=== PATIENT | male | born 1965 | race Caucasian/White ===

== ENCOUNTER 2024-04-24 19:40 | Inpatient (IN) | payer MEDICAID ==
[~2024-04-24] VITALS: Ht 185.4 cm; Wt 72.1 kg
[2024-04-24 20:04] VITALS: O2SAT 92
[2024-04-24] MEDS: IPRATROPIUM BROM 0.5 MG/2.5ML INH SOL NEB ONE (20:05)
[2024-04-24] MEDS: ALBUTEROL SULF 2.5 MG/0.5ML(0.5%) NEB SOLN NEB ONE (20:05)
[2024-04-24 20:20] LABS: Hemoglobin 9.9 g/dL (13.5-17.5)
[2024-04-24 20:25] LABS: Mean Corpuscular Hemoglobin 27.6 pg (28.0-32.0); Mean Corpuscular Hgb Conc. 30.1 g/dL (32.0-36.0); Mean Corpuscular Volume 91.6 fL (80.0-100.0); Platelet Count (auto) 204 10^3/uL (140-450)
[2024-04-24 20:29] LABS: Red Cell Distribution Width 20.4 % (11.8-14.3)
[2024-04-24 20:41] LABS: Alanine Aminotransferase 21 U/L (7-40); Albumin 3.4 g/dL (3.2-4.8); Alkaline Phosphatase 168 U/L (46-116); Anion Gap 4 (5-15); Aspartate Aminotransferase 59 U/L (13-40); Blood Urea Nitrogen 24 mg/dL (9-23); Calcium 8.8 mg/dL (8.7-10.4); Carbon Dioxide 29 mmol/L (20-30); Chloride 107 mmol/L (98-107); Glucose 116 mg/dL (74-106); Potassium 4.5 mmol/L (3.5-5.1); Sodium 140 mmol/L (136-145); White Blood Cell 147.6 10^3/uL (4.4-10.8)
[2024-04-24 20:42] LABS: Basophils % (manual) 0 (0.0-2.0); Bilirubin, Total 0.3 mg/dL (0.2-1.0); Promyelocytes % 0; Total Protein 6.6 g/dL (5.7-8.2)
[2024-04-24] MEDS: FUROSEMIDE 40 MG/4 ML VIAL IV ONE (21:45)
[2024-04-24] MEDS: ONDANSETRON HCL 4 MG/2 ML VIAL IV ONE (21:45)
[2024-04-24] MEDS: MORPHINE SULFATE 4 MG/ML SYR/VIAL IV ONE (21:45)
[2024-04-24 22:33] LABS: Band Neutrophils % (manual) 2; Eosinophils % (manual) 2 (0-7); Lymphocytes % (manual) 35 (10.0-50.0); Metamyelocytes % 2; Monocytes % (manual) 3 (0-12); Myelocytes % 1
[2024-04-24 22:34] LABS: Reactive Lymphocytes 41
[2024-04-24 22:35] LABS: Anisocytosis Slight; Blast Cells 2; Platelet Estimate Adequate
[2024-04-24] MEDS: DexAMETHasone SOD PHOS 10MG/1ML VIAL INJ IM ONE (22:35)
[2024-04-24 23:13] VITALS: PULSE 111; RESP 23; O2SAT 90
[2024-04-24] MEDS: IOHEXOL 350 MG/ML 100ML IJ ONE (23:34)
[2024-04-25] VITALS (11 sets, daily range): BP systolic 103–111; BP diastolic 56–81; PULSE 65–106; RESP 14–28; TEMP 97.8–98.2; O2SAT 84–98
[2024-04-25] MEDS: AZITHROMYCIN 500MG/ 250ML 250 ML IV ONE (00:20)
[2024-04-25] MEDS: cefTRIAXone 1GM/50ML D5W 50 ML IV ONE (00:20)
[2024-04-25] MEDS ORDERED: ONDANSETRON HCL 4 MG/2 ML VIAL IV PRN (01:30)
[2024-04-25] MEDS ORDERED: DOCUSATE SOD 100 MG CAP PO PRN (01:30)
[2024-04-25] MEDS ORDERED: NITROGLYCERIN 0.4 MG SL TAB SL PRN (02:45)
[2024-04-25] MEDS ORDERED: MORPHINE SULFATE INJ 2 MG/ml SYRG IV PRN (02:45)
[2024-04-25 03:36] LABS: Hematocrit 32.7 % (41.0-53.0); Red Cell Distribution Width 20.5 % (11.8-14.3)
[2024-04-25 03:41] LABS: Hemoglobin 9.6 g/dL (13.5-17.5); Mean Corpuscular Hemoglobin 26.9 pg (28.0-32.0); Mean Corpuscular Hgb Conc. 29.5 g/dL (32.0-36.0); Platelet Count (auto) 194 10^3/uL (140-450); Red Blood Cells 3.59 10^6/uL (4.5-5.90)
[2024-04-25 03:56] LABS: Alanine Aminotransferase 19 U/L (7-40); Alkaline Phosphatase 154 U/L (46-116); Anion Gap 4 (5-15); Aspartate Aminotransferase 52 U/L (13-40); BUN/Creatinine Ratio 21.1 (10.0-20.0); Bilirubin, Total 0.3 mg/dL (0.2-1.0); Blood Urea Nitrogen 26 mg/dL (9-23); Calcium 8.6 mg/dL (8.7-10.4); Carbon Dioxide 29 mmol/L (20-30); Chloride 107 mmol/L (98-107); Glucose 118 mg/dL (74-106); Potassium 4.8 mmol/L (3.5-5.1); Sodium 140 mmol/L (136-145); Total Protein 6.1 g/dL (5.7-8.2)
[2024-04-25 04:31] LABS: Band Neutrophils % (manual) 0; Basophils % (manual) 0 (0.0-2.0); Metamyelocytes % 0; Myelocytes % 0; Promyelocytes % 0; White Blood Cell 137.1 10^3/uL (4.4-10.8)
[2024-04-25] MEDS: HYDROcodone-ACET 5/325MG TAB PO PRN (04:39)
[2024-04-25] MEDS: IPRATROPIUM BROM 0.5 MG/2.5ML INH SOL NEB PRN (05:07)
[2024-04-25] MEDS: ALBUTEROL SULF 2.5 MG/0.5ML(0.5%) NEB SOLN NEB PRN (05:07)
[2024-04-25] MEDS: SODIUM CHLOR 0.9% PF (SALINE LOCK) 10ML VIAL/SYR IV SCH (05:38)
[2024-04-25 06:22] LABS: Blast Cells 9; Eosinophils % (manual) 2 (0-7); Lymphocytes % (manual) 37 (10.0-50.0); Monocytes % (manual) 7 (0-12); Platelet Estimate Adequate; Reactive Lymphocytes 37; Smudge Cells 4 /100 WBC
[2024-04-25 06:23] LABS: Anisocytosis Slight; Hypochromia Slight
[2024-04-25 09:15] LABS: Hematocrit 34.5 % (41.0-53.0); Hemoglobin 10.2 g/dL (13.5-17.5); Mean Corpuscular Hemoglobin 27.3 pg (28.0-32.0); Mean Corpuscular Hgb Conc. 29.7 g/dL (32.0-36.0); Mean Corpuscular Volume 92.1 fL (80.0-100.0); Platelet Count (auto) 192 10^3/uL (140-450); Red Blood Cells 3.74 10^6/uL (4.5-5.90)
[2024-04-25 09:28] LABS: INR 1.05 (0.9-1.15); Partial Thromboplastin Time 25.6 SEC (24.5-34.5); Prothrombin Time 11.1 sec (9.3-11.8)
[2024-04-25 09:30] LABS: Red Cell Distribution Width 20.6 % (11.8-14.3)
[2024-04-25 09:31] LABS: White Blood Cell 139.9 10^3/uL (4.4-10.8)
[2024-04-25 09:33] LABS: Band Neutrophils % (manual) 0; Basophils % (manual) 0 (0.0-2.0); Metamyelocytes % 0; Myelocytes % 0; Promyelocytes % 0
[2024-04-25] MEDS: CARVEDILOL 3.125 MG TAB PO SCH (10:00)
[2024-04-25 10:03] LABS: Erythrocyte Sedimentation Rate 25 mm/hr (0-20)
[2024-04-25] MEDS: FUROSEMIDE 40 MG/4 ML VIAL IV SCH (10:32)
[2024-04-25] MEDS: DexAMETHasone SOD PHOS 10MG/1ML VIAL INJ IV SCH (10:32)
[2024-04-25 11:18] LABS: Blast Cells 9; Eosinophils % (manual) 2 (0-7); Lymphocytes % (manual) 71 (10.0-50.0); Monocytes % (manual) 3 (0-12); Platelet Estimate Adequate; Reactive Lymphocytes 3
[2024-04-25 11:19] LABS: Anisocytosis Slight
[2024-04-25 11:23] LABS: Urine Bacteria None Seen /hpf (None Seen)
[2024-04-25 11:30] LABS: Urine Blood Negative /uL (Negative); Urine Clarity Clear (Clear); Urine Color Light-Yellow (Yellow); Urine Protein, UAD TRACE (Negative); Urine Specific Gravity 1.031 (1.001-1.035); Urine Urobilinogen Normal (Negative); Urine WBC 1 /hpf (0 - 3); Urine pH 5.5 (5.0-9.0)
[2024-04-25 11:46] LABS: Amphetamine Screen, Urine Neg (NEGATIVE); Barbiturate Scree,Urine Neg (NEGATIVE)
[2024-04-25 11:47] LABS: Benzodiazephine Screen, Urine Neg (NEGATIVE); Cocaine Screen, Urine Neg (NEGATIVE); Opiate Scree,Urine Neg (NEGATIVE)
[2024-04-25 11:48] LABS: Cannabinoid Screen, Urine Pos (NEGATIVE); Phencyclidine Screen, Urine Neg (NEGATIVE)
[2024-04-25 17:08] LABS: Body Fluid Polymorphonuclear 5 % (0-25); Body Fluid Red Blood Cells 82875 CUMM (0-2000); Body Fluid White Blood Cells 5875 CUMM (0-200)
[2024-04-26] VITALS (10 sets, daily range): BP systolic 94–113; BP diastolic 59–73; PULSE 87–97; RESP 16–21; TEMP 97.6–98.6; O2SAT 91–99
[2024-04-26 06:12] LABS: Mean Corpuscular Hemoglobin 26.9 pg (28.0-32.0)
[2024-04-26 06:17] LABS: Hematocrit 31.8 % (41.0-53.0); Hemoglobin 9.5 g/dL (13.5-17.5); Mean Corpuscular Volume 89.9 fL (80.0-100.0); Platelet Count (auto) 188 10^3/uL (140-450); Red Blood Cells 3.54 10^6/uL (4.5-5.90)
[2024-04-26 06:26] LABS: Alanine Aminotransferase 19 U/L (7-40); Albumin 3.1 g/dL (3.2-4.8); Alkaline Phosphatase 140 U/L (46-116); Anion Gap 2 (5-15); Aspartate Aminotransferase 49 U/L (13-40); Bilirubin, Total 0.4 mg/dL (0.2-1.0); Blood Urea Nitrogen 33 mg/dL (9-23); Calcium 8.8 mg/dL (8.7-10.4); Carbon Dioxide 30 mmol/L (20-30); Chloride 105 mmol/L (98-107); Glucose 98 mg/dL (74-106); Potassium 5.4 mmol/L (3.5-5.1); Sodium 137 mmol/L (136-145)
[2024-04-26 06:33] LABS: Red Cell Distribution Width 20.3 % (11.8-14.3)
[2024-04-26 06:34] LABS: White Blood Cell 115.2 10^3/uL (4.4-10.8)
[2024-04-26 06:36] LABS: Band Neutrophils % (manual) 0; Basophils % (manual) 0 (0.0-2.0); Eosinophils % (manual) 0 (0-7); Metamyelocytes % 0; Myelocytes % 0; Promyelocytes % 0
[2024-04-26 07:11] LABS: Anisocytosis Slight; Blast Cells 8; Hypochromia Slight; Lymphocytes % (manual) 48 (10.0-50.0); Monocytes % (manual) 1 (0-12); Platelet Estimate Adequate; Reactive Lymphocytes 34
[2024-04-26] MEDS: AZITHROMYCIN 500MG/ 250ML 250 ML IV SCH (10:50)
[2024-04-26] MEDS: cefTRIAXone 1GM/50ML D5W 50 ML IV SCH (10:51)
[2024-04-26] MEDS: LACTULOSE 20Gm/30ML SOLN PO ONE (12:30)
[2024-04-26] MEDS: SODIUM ZIRCONIUM CYCL 10 GM PAK PO ONE (20:39)
[2024-04-27] VITALS (11 sets, daily range): BP systolic 96–120; BP diastolic 57–78; PULSE 77–97; RESP 16–20; TEMP 97.6–98.8; O2SAT 92–99
[2024-04-27 06:33] LABS: Hemoglobin 9.5 g/dL (13.5-17.5); Mean Corpuscular Hgb Conc. 29.9 g/dL (32.0-36.0)
[2024-04-27 06:34] LABS: Chloride 103 mmol/L (98-107); Potassium 5.4 mmol/L (3.5-5.1); Sodium 134 mmol/L (136-145)
[2024-04-27 06:35] LABS: Anion Gap 1 (5-15); Calcium 8.8 mg/dL (8.7-10.4); Carbon Dioxide 30 mmol/L (20-30); Hematocrit 31.8 % (41.0-53.0); Mean Corpuscular Hemoglobin 26.7 pg (28.0-32.0); Mean Corpuscular Volume 89.6 fL (80.0-100.0); Platelet Count (auto) 190 10^3/uL (140-450); Red Blood Cells 3.55 10^6/uL (4.5-5.90); Red Cell Distribution Width 20.4 % (11.8-14.3)
[2024-04-27 06:40] LABS: BUN/Creatinine Ratio 35.9 (10.0-20.0); Blood Urea Nitrogen 33 mg/dL (9-23); Glucose 84 mg/dL (74-106)
[2024-04-27 06:57] LABS: Band Neutrophils % (manual) 0; Basophils % (manual) 0 (0.0-2.0); Blast Cells 0; Metamyelocytes % 0; Myelocytes % 0; Promyelocytes % 0; White Blood Cell 130.8 10^3/uL (4.4-10.8)
[2024-04-27 08:29] LABS: Eosinophils % (manual) 1 (0-7); Reactive Lymphocytes 3
[2024-04-27 08:30] LABS: Lymphocytes % (manual) 85 (10.0-50.0); Monocytes % (manual) 4 (0-12)
[2024-04-27 08:32] LABS: Anisocytosis Slight; Hypochromia Moderate
[2024-04-27 08:33] LABS: Platelet Estimate Adequate; Tear Drop Cells FEW
[2024-04-28] VITALS (15 sets, daily range): BP systolic 92–120; BP diastolic 58–76; PULSE 80–95; RESP 12–22; TEMP 97.6–98.5; O2SAT 92–96
[2024-04-28 05:34] LABS: Alanine Aminotransferase 21 U/L (7-40); Albumin 3.1 g/dL (3.2-4.8); Alkaline Phosphatase 129 U/L (46-116); Anion Gap 0 (5-15); Aspartate Aminotransferase 50 U/L (13-40); BUN/Creatinine Ratio 26.6 (10.0-20.0); Bilirubin, Total 0.3 mg/dL (0.2-1.0); Blood Urea Nitrogen 29 mg/dL (9-23); Calcium 8.7 mg/dL (8.7-10.4); Carbon Dioxide 30 mmol/L (20-30); Chloride 103 mmol/L (98-107); Glucose 81 mg/dL (74-106); Hemoglobin 9.4 g/dL (13.5-17.5); Mean Corpuscular Hemoglobin 28.5 pg (28.0-32.0); Sodium 133 mmol/L (136-145)
[2024-04-28 05:35] LABS: Total Protein 5.9 g/dL (5.7-8.2)
[2024-04-28 05:41] LABS: Hematocrit 29.8 % (41.0-53.0); Mean Corpuscular Hgb Conc. 31.5 g/dL (32.0-36.0); Mean Corpuscular Volume 90.7 fL (80.0-100.0); Platelet Count (auto) 188 10^3/uL (140-450); Red Blood Cells 3.29 10^6/uL (4.5-5.90)
[2024-04-28 05:53] LABS: Red Cell Distribution Width 20.5 % (11.8-14.3)
[2024-04-28 05:55] LABS: Potassium 6.2 mmol/L (3.5-5.1); White Blood Cell 148.5 10^3/uL (4.4-10.8)
[2024-04-28 05:57] LABS: Band Neutrophils % (manual) 0; Basophils % (manual) 0 (0.0-2.0); Blast Cells 0; Metamyelocytes % 0; Myelocytes % 0; Promyelocytes % 0; Reactive Lymphocytes 0
[2024-04-28] MEDS: DEXTROSE (50%) 50ML SYRG IV ONE (08:14)
[2024-04-28] MEDS: SODIUM BICARB 8.4% 50Meq/50ml SYR Vial IV ONE (08:15)
[2024-04-28] MEDS: InsuLIN REG 1unit/0.01ml Soln (100units/ml) IV ONE (08:15)
[2024-04-28] MEDS: CALCIUM GLUC 1,000mg/50ml-NS 50 ML IV ONE (08:29)
[2024-04-28 08:36] LABS: Anisocytosis Slight; Eosinophils % (manual) 1 (0-7); Hypochromia Moderate; Lymphocytes % (manual) 91 (10.0-50.0); Monocytes % (manual) 4 (0-12); Platelet Estimate Decreased; Smudge Cells 7 /100 WBC
[2024-04-28] MEDS: MIDAZOLAM HCL 2MG/2ML 2ml VIAL (1mg/ml) ONE (09:30)
[2024-04-28] MEDS: fentaNYL CITRATE 100 MCG/2 ML VL ONE (09:30)
[2024-04-28] MEDS: LIDOCAINE 2%HCL (LOCAL ANESTH.) INJ 20ML MDV ONE (09:40)
[2024-04-28] MEDS: cefTRIAXone 1GM/50ML D5W 0 ML IV ONE (09:41)
[2024-04-28] MEDS: CLINDAMYCIN 600MG IV 50 ML IV ONE (09:47)
[2024-04-28] MEDS: HEPARIN SODIUM (PORCINE) 5000 UNITS/ML 1ML VIAL ONE ×2 (10:42→10:43)
[2024-04-28] MEDS: SODIUM ZIRCONIUM CYCL 10 GM PAK PO ONE (11:31)
[2024-04-28] MEDS ORDERED: ACETAMINOPHEN 325 MG TAB PO PRN (12:30)
[2024-04-29] VITALS (10 sets, daily range): BP systolic 85–122; BP diastolic 49–98; PULSE 81–112; RESP 14–20; TEMP 98.1–99; O2SAT 90–98
[2024-04-29 06:05] LABS: Chloride 99 mmol/L (98-107); Sodium 133 mmol/L (136-145)
[2024-04-29 06:06] LABS: Anion Gap 1 (5-15); Calcium 9.1 mg/dL (8.7-10.4); Carbon Dioxide 33 mmol/L (20-30)
[2024-04-29 06:11] LABS: BUN/Creatinine Ratio 31.5 (10.0-20.0); Blood Urea Nitrogen 34 mg/dL (9-23); Glucose 81 mg/dL (74-106)
[2024-04-29 06:20] LABS: Hematocrit 30.5 % (41.0-53.0); Hemoglobin 9.7 g/dL (13.5-17.5); Mean Corpuscular Hemoglobin 28.3 pg (28.0-32.0); Mean Corpuscular Hgb Conc. 31.6 g/dL (32.0-36.0); Mean Corpuscular Volume 89.4 fL (80.0-100.0); Platelet Count (auto) 176 10^3/uL (140-450); Red Blood Cells 3.42 10^6/uL (4.5-5.90)
[2024-04-29 06:28] LABS: Potassium 6.2 mmol/L (3.5-5.1)
[2024-04-29 06:33] LABS: Red Cell Distribution Width 20.1 % (11.8-14.3)
[2024-04-29 06:34] LABS: White Blood Cell 194.9 10^3/uL (4.4-10.8)
[2024-04-29 06:35] LABS: Band Neutrophils % (manual) 0; Basophils % (manual) 0 (0.0-2.0); Metamyelocytes % 0; Myelocytes % 0; Promyelocytes % 0
[2024-04-29 08:46] LABS: Anisocytosis Slight; Blast Cells 2; Eosinophils % (manual) 2 (0-7); Lymphocytes % (manual) 87 (10.0-50.0); Monocytes % (manual) 3 (0-12); Platelet Estimate Adequate; Reactive Lymphocytes 2
[2024-04-29] MEDS: ALLOPURINOL 100 MG TAB PO SCH (09:32)
[2024-04-29] MEDS: DEXTROSE (50%) 50ML SYRG IV ONE (10:19)
[2024-04-29] MEDS: CALCIUM GLUC 1,000mg/50ml-NS 50 ML IV ONE (10:19)
[2024-04-29] MEDS: InsuLIN REG 1unit/0.01ml Soln (100units/ml) IV ONE (10:22)
[2024-04-29] MEDS: FUROSEMIDE 40 MG/4 ML VIAL IV SCH (10:29)
[2024-04-29] MEDS: SODIUM ZIRCONIUM CYCL 10 GM PAK PO ONE (10:29)
[2024-04-29] MEDS: ACETAMINOPHEN 325 MG TAB PO ONE (10:45)
[2024-04-29] MEDS: diphenhdrAMINE HCL 25 MG CAP PO ONE ×2 (10:46→17:15)
[2024-04-29] MEDS ORDERED: SODIUM CHL 0.9% IV SCH ×2 (11:00)
[2024-04-29] MEDS ORDERED: BENDAMUSTINE HCL IV SCH ×2 (11:00)
[2024-04-29 12:06] LABS: Protein, Body Fluid 3.7 g/dL (.)
[2024-04-29] MEDS: SODIUM CHL 0.9% IV SCH (14:03)
[2024-04-29] MEDS: BENDAMUSTINE HCL IV SCH (14:03)
[2024-04-29] MEDS: ONDANSETRON HCL 4 MG/2 ML VIAL IV PRN (14:10)
[2024-04-29] MEDS: SODIUM CHL 0.9% IV ONE (15:16)
[2024-04-29] MEDS: RITUXIMAB IV ONE (15:16)
[2024-04-29] MEDS: SODIUM ZIRCONIUM CYCL 10 GM PAK PO SCH (15:54)
[2024-04-29] MEDS: ACETAMINOPHEN 325 MG TAB PO PRN (17:14)
[2024-04-29] MEDS: SODIUM CHLORIDE 0.9% 500 ML IV ONE (23:38)
[2024-04-30] VITALS (11 sets, daily range): BP systolic 93–110; BP diastolic 50–64; PULSE 85–101; RESP 16–20; TEMP 97.6–98.5; O2SAT 94–98
[2024-04-30 06:31] LABS: Hematocrit 30.1 % (41.0-53.0); Red Cell Distribution Width 19.9 % (11.8-14.3)
[2024-04-30 06:35] LABS: Hemoglobin 9.6 g/dL (13.5-17.5); Mean Corpuscular Hgb Conc. 31.8 g/dL (32.0-36.0); Mean Corpuscular Volume 88.1 fL (80.0-100.0); Platelet Count (auto) 91 10^3/uL (140-450); Red Blood Cells 3.42 10^6/uL (4.5-5.90)
[2024-04-30 06:38] LABS: Alanine Aminotransferase 150 U/L (7-40); Alkaline Phosphatase 172 U/L (46-116); Anion Gap 4 (5-15); Aspartate Aminotransferase 342 U/L (13-40); BUN/Creatinine Ratio 31.6 (10.0-20.0); Bilirubin, Total 0.3 mg/dL (0.2-1.0); Calcium 8.6 mg/dL (8.7-10.4); Carbon Dioxide 28 mmol/L (20-30); Chloride 99 mmol/L (98-107); Glucose 87 mg/dL (74-106); Magnesium 1.9 mg/dL (1.6-2.6); Potassium 5.1 mmol/L (3.5-5.1); Sodium 131 mmol/L (136-145); Total Protein 5.6 g/dL (5.7-8.2)
[2024-04-30 06:43] LABS: White Blood Cell 44.1 10^3/uL (4.4-10.8)
[2024-04-30 06:44] LABS: Band Neutrophils % (manual) 0; Basophils % (manual) 0 (0.0-2.0); Eosinophils % (manual) 0 (0-7); Metamyelocytes % 0; Myelocytes % 0; Promyelocytes % 0
[2024-04-30 06:49] LABS: Blood Urea Nitrogen 61 mg/dL (9-23)
[2024-04-30 08:38] LABS: Blast Cells 2; Lymphocytes % (manual) 70 (10.0-50.0); Monocytes % (manual) 3 (0-12); Reactive Lymphocytes 2
[2024-04-30 08:39] LABS: Platelet Estimate Decreased
[2024-04-30] MEDS: SODIUM CHLORIDE 0.9% 1,000 ML IV SCH (09:00)
[2024-04-30] MEDS ORDERED: DexAMETHasone SOD PHOS 4 MG/1ML SDV INJ IV PRN (09:15)
[2024-04-30] MEDS: diphenhdrAMINE HCL 25 MG CAP PO ONE (13:08)
[2024-04-30] MEDS: ONDANSETRON HCL 4 MG/2 ML VIAL IV PRN (13:09)
[2024-04-30] MEDS: SODIUM CHL 0.9% IV SCH (13:22)
[2024-04-30] MEDS: BENDAMUSTINE HCL IV SCH (13:22)
[2024-05-01 01:00] VITALS: BP 93/57; PULSE 80; RESP 18; TEMP 98.9; O2SAT 91
[2024-05-01 01:44] VITALS: BP 94/58; PULSE 94; RESP 18; O2SAT 97
[2024-05-01 05:00] VITALS: BP 98/43; PULSE 88; RESP 88; TEMP 98.3; O2SAT 95
[2024-05-01 05:50] LABS: Hematocrit 28.9 % (41.0-53.0); Hemoglobin 9.4 g/dL (13.5-17.5); Mean Corpuscular Hemoglobin 28.4 pg (28.0-32.0); Mean Corpuscular Hgb Conc. 32.6 g/dL (32.0-36.0); Platelet Count (auto) 97 10^3/uL (140-450); Red Blood Cells 3.32 10^6/uL (4.5-5.90); White Blood Cell 29.9 10^3/uL (4.4-10.8)
[2024-05-01 06:13] LABS: Basophils % (manual) 0 (0.0-2.0); Metamyelocytes % 0; Myelocytes % 0; Promyelocytes % 0
[2024-05-01 06:15] LABS: Alanine Aminotransferase 215 U/L (7-40); Albumin 2.9 g/dL (3.2-4.8); Alkaline Phosphatase 128 U/L (46-116); Anion Gap 2 (5-15); Aspartate Aminotransferase 361 U/L (13-40); BUN/Creatinine Ratio 36.4 (10.0-20.0); Bilirubin, Total 0.2 mg/dL (0.2-1.0); Blood Urea Nitrogen 55 mg/dL (9-23); Calcium 8.8 mg/dL (8.7-10.4); Carbon Dioxide 27 mmol/L (20-30); Chloride 103 mmol/L (98-107); Glucose 104 mg/dL (74-106); Sodium 132 mmol/L (136-145); Total Protein 5.6 g/dL (5.7-8.2)
[2024-05-01 07:54] VITALS: BP 100/61; PULSE 91; RESP 17; TEMP 97.9; O2SAT 98
[2024-05-01 07:58] LABS: Band Neutrophils % (manual) 3; Blast Cells 1; Eosinophils % (manual) 1 (0-7); Lymphocytes % (manual) 68 (10.0-50.0); Monocytes % (manual) 6 (0-12); Platelet Estimate Decreased; Reactive Lymphocytes 3
[2024-05-01 08:00] VITALS: PULSE 93
[2024-05-01 11:40] VITALS: BP 102/58; PULSE 89; RESP 16; TEMP 97.4; O2SAT 89
== END 2024-05-01 15:55 | disposition home or self-care (01) | DRG 691 ==
LOC: ER 19:40 → EDBD 19:40 → EDSEX 19:40 → TELE-EAST 04-25 02:45 → TELE 04-25 02:45 → TELE-EAST 04-25 04:11
PROVIDERS: ADMIT Internal Medicine; ATTEND Emergency Medicine
PROC: 0W9B3ZZ Drainage of Left Pleural Cavity, Percutaneous Approach (ICD-10-PCS; principal; 2024-04-25)
PROC: 0JH63XZ Insertion of Tunneled Vascular Access Device into Chest Subcutaneous Tissue and Fascia, Percutaneous Approach (ICD-10-PCS; 2024-04-28)
PROC: 02HV33Z Insertion of Infusion Device into Superior Vena Cava, Percutaneous Approach (ICD-10-PCS; 2024-04-28)
PROC: B518ZZA Fluoroscopy of Superior Vena Cava, Guidance (ICD-10-PCS; 2024-04-28)
PROC: B548ZZA Ultrasonography of Superior Vena Cava, Guidance (ICD-10-PCS; 2024-04-28)
DX: C82.18 Follicular lymphoma grade II, lymph nodes of multiple sites (principal); J96.01 Acute respiratory failure with hypoxia; N17.0 Acute kidney failure with tubular necrosis; J15.69 Pneumonia due to other Gram-negative bacteria; R18.8 Other ascites; J15.9 Unspecified bacterial pneumonia; J90 Pleural effusion, not elsewhere classified; J44.0 Chronic obstructive pulmonary disease with (acute) lower respiratory infection; R56.9 Unspecified convulsions; D72.820 Lymphocytosis (symptomatic); E11.9 Type 2 diabetes mellitus without complications; C81.90 Hodgkin lymphoma, unspecified, unspecified site; H40.9 Unspecified glaucoma; D72.829 Elevated white blood cell count, unspecified; F17.210 Nicotine dependence, cigarettes, uncomplicated; R79.89 Other specified abnormal findings of blood chemistry; E87.5 Hyperkalemia; K59.00 Constipation, unspecified; Z88.0 Allergy status to penicillin; Z85.6 Personal history of leukemia; C82.28 Follicular lymphoma grade III, unspecified, lymph nodes of multiple sites
CPT/HCPCS: 32555; 36415; 36558; 71045; 71275; 76604; 76705; 76942; 77001; 80048; 80053; 80307; 81001; 83615; 83735; 83880; 83986; 84132; 84484; 84550; 85007; 85027; 85379; 85610; 85652; 85730; 86141; 86850; 86900; 86901; 87070; 87205; 89051; 93005; 93306; 94640; 99152; C1894; G0378; J1100; J1642; J1815; J2250; J2405; J3490; J9034

== ENCOUNTER 2024-05-24 08:11 | Inpatient (IN) | payer MEDICAID, OTHER ==
[~2024-05-24] VITALS: Ht 185.4 cm; Wt 70.3 kg
[~2024-05-24 08:11] MED LIST: ONDA-180 PO; PROC10TA6 PO
[2024-05-24 08:51] LABS: Basophils # (auto) 0.1 10 ^3/uL (0-0.2); Eosinophils # (auto) 0 10 ^3/uL (0-0.8); Eosinophils % (auto) 0.4 % (0.0-7.0); Monocytes # (auto) 0.4 10 ^3/uL (0-1.3); Nucleated Red Blood Cells % 0.1 %; Platelet Count (auto) 49 10^3/uL (140-450); White Blood Cell 4.2 10^3/uL (4.4-10.8)
[2024-05-24 08:53] LABS: Basophils % (auto) 1.3 % (0.0-2.0); Hematocrit 26.7 % (41.0-53.0); Lymphocytes # (auto) 0.8 10 ^3/uL (0.4-5.4); Lymphocytes % (auto) 19.1 % (10.0-50.0); Mean Corpuscular Hemoglobin 29.3 pg (28.0-32.0); Mean Corpuscular Hgb Conc. 33.6 g/dL (32.0-36.0); Mean Corpuscular Volume 87.3 fL (80.0-100.0); Monocytes % (auto) 8.6 % (0.0-12.0); Neutrophils % (auto) 70.6 % (37.0-80.0); Red Blood Cells 3.06 10^6/uL (4.5-5.90); Red Cell Distribution Width 23.2 % (11.8-14.3)
[2024-05-24 09:00] LABS: Alanine Aminotransferase 20 U/L (7-40); Albumin 2.6 g/dL (3.2-4.8); Alkaline Phosphatase 62 U/L (46-116); Anion Gap 3 (5-15); Aspartate Aminotransferase 22 U/L (13-40); Blood Urea Nitrogen 22 mg/dL (9-23); Calcium 7.2 mg/dL (8.7-10.4); Carbon Dioxide 26 mmol/L (20-30); Chloride 102 mmol/L (98-107); Glucose 111 mg/dL (74-106); Magnesium 1.9 mg/dL (1.6-2.6); Potassium 4.1 mmol/L (3.5-5.1); Sodium 131 mmol/L (136-145)
[2024-05-24 09:01] LABS: Bilirubin, Total 0.4 mg/dL (0.2-1.0); Total Protein 4.3 g/dL (5.7-8.2)
[2024-05-24 09:17] LABS: INR 1.17 (0.9-1.15); Partial Thromboplastin Time 27.6 SEC (24.5-34.5); Prothrombin Time 12.3 sec (9.3-11.8)
[2024-05-24 09:34] LABS: Anisocytosis Slight; Platelet Estimate Decreased
[2024-05-24] MEDS: HYDROcodone-ACET 10/325MG TAB PO ONE (09:34)
[2024-05-24 09:35] LABS: Ovalocytes FEW
[2024-05-24 10:35] VITALS: O2SAT 91
[2024-05-24] MEDS: FUROSEMIDE 20 MG/2 ML VIAL IV ONE (11:48)
[2024-05-24] MEDS ORDERED: ACYC1TAB2 PO ×2 (13:32→19:13)
[2024-05-24] MEDS ORDERED: ALBUTEROL SULF 2.5 MG/0.5ML(0.5%) NEB SOLN NEB PRN (14:00)
[2024-05-24] MEDS: HYDROcodone-ACET 5/325MG TAB PO PRN (15:08)
[2024-05-24 15:14] VITALS: BP 105/77; PULSE 99; RESP 16; TEMP 97.9; O2SAT 93
[2024-05-24 15:28] LABS: INR 1.13 (0.9-1.15); Prothrombin Time 11.9 sec (9.3-11.8)
[2024-05-24 18:02] VITALS: BP 100/64; PULSE 100; RESP 22; TEMP 98; O2SAT 92
[2024-05-24 18:30] VITALS: PULSE 100; RESP 22; O2SAT 92
[2024-05-24] MEDS ORDERED: ACET-6 PO (19:11)
[2024-05-24] MEDS ORDERED: ZOFR4T PO (19:11)
[2024-05-24] MEDS ORDERED: ALBU108A5 IN (19:11)
[2024-05-24 21:00] VITALS: BP 113/78; PULSE 91; RESP 18; TEMP 97.9; O2SAT 99
[2024-05-24] MEDS: ACYCLOVIR 400 MG TAB PO SCH (21:11)
[2024-05-24 22:21] VITALS: O2SAT 92
[2024-05-25] VITALS (9 sets, daily range): BP systolic 91–115; BP diastolic 53–83; PULSE 95–106; RESP 17–19; TEMP 97.5–99.2; O2SAT 93–100
[2024-05-25 06:06] LABS: Basophils # (auto) 0 10 ^3/uL (0-0.2); Eosinophils # (auto) 0 10 ^3/uL (0-0.8); Eosinophils % (auto) 0.9 % (0.0-7.0); Monocytes # (auto) 0.5 10 ^3/uL (0-1.3); Nucleated Red Blood Cells % 0.1 %
[2024-05-25 06:08] LABS: Basophils % (auto) 0.4 % (0.0-2.0); Hematocrit 27.9 % (41.0-53.0); Hemoglobin 9.2 g/dL (13.5-17.5); Lymphocytes % (auto) 21.1 % (10.0-50.0); Mean Corpuscular Hemoglobin 28.8 pg (28.0-32.0); Mean Corpuscular Hgb Conc. 32.9 g/dL (32.0-36.0); Mean Corpuscular Volume 87.5 fL (80.0-100.0); Monocytes % (auto) 9.3 % (0.0-12.0); Neutrophils # (auto) 3.3 10 ^3/uL (1.6-8.6); Neutrophils % (auto) 68.3 % (37.0-80.0); Platelet Count (auto) 48 10^3/uL (140-450); Red Blood Cells 3.18 10^6/uL (4.5-5.90); White Blood Cell 4.8 10^3/uL (4.4-10.8)
[2024-05-25 06:18] LABS: Alanine Aminotransferase 22 U/L (7-40); Albumin 2.6 g/dL (3.2-4.8); Alkaline Phosphatase 61 U/L (46-116); Anion Gap 3 (5-15); Aspartate Aminotransferase 20 U/L (13-40); BUN/Creatinine Ratio 25.2 (10.0-20.0); Bilirubin, Total 0.5 mg/dL (0.2-1.0); Blood Urea Nitrogen 26 mg/dL (9-23); Calcium 7.6 mg/dL (8.7-10.4); Carbon Dioxide 27 mmol/L (20-30); Chloride 102 mmol/L (98-107); Glucose 105 mg/dL (74-106); Potassium 4.5 mmol/L (3.5-5.1); Sodium 132 mmol/L (136-145); Total Protein 4.2 g/dL (5.7-8.2)
[2024-05-25 06:25] LABS: Red Cell Distribution Width 22.5 % (11.8-14.3)
[2024-05-25] MEDS ORDERED: ENOXAPARIN SOD 40 MG/0.4 ML SYRINGE SC SCH (10:00)
[2024-05-25] MEDS: FUROSEMIDE 20 MG/2 ML VIAL IV SCH (10:56)
[2024-05-25 16:51] LABS: Body Fluid Polymorphonuclear 20 % (0-25); Body Fluid Red Blood Cells 169000 CUMM (0-2000); Body Fluid White Blood Cells 350 CUMM (0-200)
[2024-05-26] VITALS (8 sets, daily range): BP systolic 92–162; BP diastolic 52–91; PULSE 54–106; RESP 16–18; TEMP 98–99; O2SAT 92–99
[2024-05-26] MEDS: ALBUMIN 25% 100 ML IV SCH (12:30)
[2024-05-26] MEDS: ALBUMIN 25% 100 ML IV ONE (12:42)
[2024-05-26] MEDS: MIDODRINE HCL 10 MG TAB PO SCH (12:45)
[2024-05-26 14:51] LABS: Body Fluid Red Blood Cells 256486 CUMM (0-2000); Body Fluid White Blood Cells 648 CUMM (0-200)
[2024-05-26 14:56] LABS: Body Fluid Polymorphonuclear 13 % (0-25)
[2024-05-27 01:00] VITALS: BP 95/50; PULSE 111; RESP 19; TEMP 102.7; O2SAT 91
[2024-05-27] MEDS: ACETAMINOPHEN 325 MG TAB PO PRN (01:08)
[2024-05-27 05:00] VITALS: BP 98/59; PULSE 95; RESP 19; TEMP 98.9; O2SAT 99
[2024-05-27 07:12] LABS: Basophils # (auto) 0 10 ^3/uL (0-0.2); Eosinophils # (auto) 0 10 ^3/uL (0-0.8); Eosinophils % (auto) 1.2 % (0.0-7.0); Lymphocytes # (auto) 1.3 10 ^3/uL (0.4-5.4); Mean Corpuscular Hemoglobin 29.2 pg (28.0-32.0); Neutrophils # (auto) 1.8 10 ^3/uL (1.6-8.6)
[2024-05-27 07:20] LABS: Basophils % (auto) 0.6 % (0.0-2.0); Hematocrit 24.1 % (41.0-53.0); Lymphocytes % (auto) 38.1 % (10.0-50.0); Mean Corpuscular Hgb Conc. 33.3 g/dL (32.0-36.0); Mean Corpuscular Volume 87.7 fL (80.0-100.0); Monocytes # (auto) 0.2 10 ^3/uL (0-1.3); Monocytes % (auto) 7.1 % (0.0-12.0); Platelet Count (auto) 50 10^3/uL (140-450); Red Blood Cells 2.75 10^6/uL (4.5-5.90); White Blood Cell 3.5 10^3/uL (4.4-10.8)
[2024-05-27 07:30] LABS: Red Cell Distribution Width 23.4 % (11.8-14.3)
[2024-05-27 07:37] LABS: Alanine Aminotransferase 16 U/L (7-40); Albumin 2.7 g/dL (3.2-4.8); Alkaline Phosphatase 53 U/L (46-116); Anion Gap 2 (5-15); Aspartate Aminotransferase 18 U/L (13-40); BUN/Creatinine Ratio 23.7 (10.0-20.0); Bilirubin, Total 0.5 mg/dL (0.2-1.0); Blood Urea Nitrogen 23 mg/dL (9-23); Calcium 7.7 mg/dL (8.7-10.4); Carbon Dioxide 28 mmol/L (20-30); Chloride 101 mmol/L (98-107); Glucose 104 mg/dL (74-106); Potassium 4.4 mmol/L (3.5-5.1); Sodium 131 mmol/L (136-145)
[2024-05-27 07:38] LABS: Total Protein 4.1 g/dL (5.7-8.2)
[2024-05-27 08:32] VITALS: O2SAT 94
[2024-05-27 08:37] LABS: Anisocytosis Slight; Platelet Estimate Decreased
[2024-05-27 09:00] VITALS: BP 98/55; PULSE 93; RESP 18; TEMP 99; O2SAT 92
[2024-05-27 13:07] LABS: Protein, Body Fluid 2.3 g/dL (.)
[2024-05-27 13:07] LABS: Protein, Body Fluid 3.2 g/dL (.)
[2024-05-27] MEDS ORDERED: MID10T PO (14:45)
[2024-05-27 17:00] VITALS: BP 91/62; PULSE 101; RESP 17; TEMP 99.3; O2SAT 92
[2024-05-27 17:31] VITALS: BP 91/62; PULSE 101; RESP 17; TEMP 99.3; O2SAT 92
== END 2024-05-27 19:44 | disposition home or self-care (01) ==
LOC: ER 08:11 → EDBD 08:11 → MERGE 13:32 → OVERFLOW 13:32 → WEST WING 17:29
PROVIDERS: ADMIT Nurse Practitioner Family; ATTEND Hospitalist
PROC: 0W9B3ZZ Drainage of Left Pleural Cavity, Percutaneous Approach (ICD-10-PCS; principal; 2024-05-25)
PROC: 0W9G3ZZ Drainage of Peritoneal Cavity, Percutaneous Approach (ICD-10-PCS; 2024-05-26)
DX: K74.60 Unspecified cirrhosis of liver (principal); J96.01 Acute respiratory failure with hypoxia; D69.6 Thrombocytopenia, unspecified; E44.0 Moderate protein-calorie malnutrition; J90 Pleural effusion, not elsewhere classified; E87.1 Hypo-osmolality and hyponatremia; I50.9 Heart failure, unspecified; R18.8 Other ascites; J98.11 Atelectasis; F17.210 Nicotine dependence, cigarettes, uncomplicated; H54.7 Unspecified visual loss; J44.9 Chronic obstructive pulmonary disease, unspecified; D64.9 Anemia, unspecified; Z88.0 Allergy status to penicillin; Z92.21 Personal history of antineoplastic chemotherapy; Z68.20 Body mass index [BMI] 20.0-20.9, adult
CPT/HCPCS: 32555; 36415; 49083; 71045; 74176; 76705; 76942; 80053; 83735; 83880; 83986; 84484; 85025; 85610; 85730; 87205; 89051; 96374; 97110; 97116; 97163; 99291; G0378; P9047

== ENCOUNTER 2024-06-10 19:57 | Inpatient (IN) | payer MEDICAID ==
[~2024-06-10] VITALS: Ht 185.4 cm; Wt 64.8 kg
[~2024-06-10 19:57] MED LIST changes: +ACET-6 PO; +ACYC1TAB2 PO; +ALBU108A5 IN; +MID10T PO
[2024-06-10 21:11] LABS: Basophils # (auto) 0.1 10 ^3/uL (0-0.2); Basophils % (auto) 0.9 % (0.0-2.0); Eosinophils # (auto) 0.1 10 ^3/uL (0-0.8); Eosinophils % (auto) 1.4 % (0.0-7.0); Hematocrit 29.6 % (41.0-53.0); Hemoglobin 9.2 g/dL (13.5-17.5); Lymphocytes # (auto) 2.5 10 ^3/uL (0.4-5.4); Mean Corpuscular Hemoglobin 27.5 pg (28.0-32.0); Mean Corpuscular Hgb Conc. 31.1 g/dL (32.0-36.0); Mean Corpuscular Volume 88.4 fL (80.0-100.0); Monocytes % (auto) 17.1 % (0.0-12.0); Neutrophils # (auto) 2.4 10 ^3/uL (1.6-8.6); Neutrophils % (auto) 39.6 % (37.0-80.0); Nucleated Red Blood Cells % 0.1 %; Platelet Count (auto) 287 10^3/uL (140-450); Red Blood Cells 3.35 10^6/uL (4.5-5.90); White Blood Cell 6.1 10^3/uL (4.4-10.8)
[2024-06-10 21:18] LABS: Alanine Aminotransferase 25 U/L (7-40); Alkaline Phosphatase 89 U/L (46-116); Anion Gap 4 (5-15); Aspartate Aminotransferase 22 U/L (13-40); Blood Urea Nitrogen 21 mg/dL (9-23); Calcium 8.7 mg/dL (8.7-10.4); Carbon Dioxide 30 mmol/L (20-31); Chloride 107 mmol/L (98-107); Glucose 92 mg/dL (74-106); Potassium 4.6 mmol/L (3.5-5.1); Sodium 141 mmol/L (136-145)
[2024-06-10 21:19] LABS: Bilirubin, Total 0.2 mg/dL (0.2-1.0); Total Protein 4.8 g/dL (5.7-8.2)
[2024-06-10] MEDS: HYDROcodone-ACET 5/325MG TAB PO ONE (21:36)
[2024-06-10 23:25] LABS: Urine Bacteria FEW /hpf (None Seen); Urine Blood Negative /uL (Negative); Urine Clarity Clear (Clear); Urine Color Light-Yellow (Yellow); Urine Protein, UAD 1+ (Negative); Urine Specific Gravity 1.025 (1.001-1.035); Urine Sperm PRESENT /hpf (None Seen); Urine Urobilinogen Normal (Negative); Urine WBC 1 /hpf (0 - 3); Urine pH 7.5 (5.0-9.0)
[2024-06-11] VITALS (9 sets, daily range): BP systolic 95–125; BP diastolic 60–75; PULSE 87–106; RESP 15–18; TEMP 98.1–99.3; O2SAT 92–98
[2024-06-11] MEDS: FUROSEMIDE 40 MG/4 ML VIAL IV ONE (00:08)
[2024-06-11] MEDS: HYDROcodone-ACET 5/325MG TAB PO ONE (02:18)
[2024-06-11] MEDS ORDERED: ACETAMINOPHEN 325 MG TAB PO PRN (02:45)
[2024-06-11] MEDS ORDERED: ONDANSETRON HCL 4 MG/2 ML VIAL IV PRN (02:45)
[2024-06-11] MEDS ORDERED: ALBUTEROL SULF 2.5 MG/0.5ML(0.5%) NEB SOLN NEB PRN (02:45)
[2024-06-11] MEDS ORDERED: TEMAZEPAM 15 MG CAP PO PRN (02:45)
[2024-06-11] MEDS: ALBUMIN 25% 50 ML IV SCH (03:15)
[2024-06-11] MEDS: FUROSEMIDE 20 MG/2 ML VIAL IV SCH ×2 (03:25→19:00)
[2024-06-11 04:39] LABS: Chloride 105 mmol/L (98-107); Potassium 3.9 mmol/L (3.5-5.1); Sodium 138 mmol/L (136-145)
[2024-06-11 04:40] LABS: Anion Gap 6 (5-15); Calcium 8.5 mg/dL (8.7-10.4); Carbon Dioxide 27 mmol/L (20-31)
[2024-06-11 04:45] LABS: BUN/Creatinine Ratio 18.2 (10.0-20.0); Blood Urea Nitrogen 16 mg/dL (9-23); Glucose 111 mg/dL (74-106)
[2024-06-11] MEDS: MIDODRINE HCL 10 MG TAB PO SCH (05:42)
[2024-06-11] MEDS: HYDROcodone-ACET 5/325MG TAB PO PRN (05:47)
[2024-06-11] MEDS ORDERED: FUROSEMIDE 20 MG/2 ML VIAL IV SCH (06:00)
[2024-06-11 08:24] LABS: INR 1.03 (0.9-1.15); Partial Thromboplastin Time 29.9 SEC (24.5-34.5); Prothrombin Time 10.9 sec (9.3-11.8)
[2024-06-11] MEDS: ENOXAPARIN SOD 40 MG/0.4 ML SYRINGE SC SCH (09:09)
[2024-06-11] MEDS: ALBUMIN 25% 100 ML IV ONE (10:51)
[2024-06-11] MEDS ORDERED: FURO1TAB31 PO (17:09)
[2024-06-11] MEDS ORDERED: HYDR-4902 PO (17:09)
[2024-06-11] MEDS: SPIRONOLACTONE 25 MG TAB PO SCH (17:49)
[2024-06-11 19:26] LABS: Body Fluid Polymorphonuclear 20 % (0-25); Body Fluid Red Blood Cells 84924 CUMM (0-2000); Body Fluid White Blood Cells 2558 CUMM (0-200)
[2024-06-12] VITALS (8 sets, daily range): BP systolic 100–114; BP diastolic 64–72; PULSE 82–91; RESP 18–20; TEMP 97.6–98.6; O2SAT 94–98
[2024-06-12] MEDS: HYDROcodone-ACET 5/325MG TAB PO PRN (05:42)
[2024-06-12 07:27] LABS: Anion Gap 3 (5-15); Calcium 9.3 mg/dL (8.7-10.4); Carbon Dioxide 31 mmol/L (20-31); Chloride 105 mmol/L (98-107); Potassium 4.6 mmol/L (3.5-5.1); Sodium 139 mmol/L (136-145)
[2024-06-12 07:33] LABS: BUN/Creatinine Ratio 20.5 (10.0-20.0); Blood Urea Nitrogen 18 mg/dL (9-23); Glucose 93 mg/dL (74-106)
[2024-06-12 07:34] LABS: Magnesium 2.1 mg/dL (1.6-2.6)
[2024-06-12 13:06] LABS: Protein, Body Fluid 2.7 g/dL (.)
[2024-06-13] VITALS (7 sets, daily range): BP systolic 100–118; BP diastolic 60–69; PULSE 86–99; RESP 17–19; TEMP 97.9–99.8; O2SAT 91–98
[2024-06-13] MEDS: HYDROcodone-ACET 5/325MG TAB PO PRN (00:20)
[2024-06-13] MEDS: AZITHROMYCIN 250 MG TAB PO SCH (11:57)
[2024-06-13] MEDS: cefTRIAXone 1GM/50ML D5W 50 ML IV SCH (11:58)
[2024-06-14] VITALS (8 sets, daily range): BP systolic 100–125; BP diastolic 67–72; PULSE 72–93; RESP 16–20; TEMP 97.5–99.1; O2SAT 92–94
[2024-06-14 06:56] LABS: Anion Gap 5 (5-15); Carbon Dioxide 29 mmol/L (20-31); Chloride 102 mmol/L (98-107); Potassium 4.3 mmol/L (3.5-5.1); Sodium 136 mmol/L (136-145)
[2024-06-14 07:02] LABS: BUN/Creatinine Ratio 16.9 (10.0-20.0); Blood Urea Nitrogen 15 mg/dL (9-23); Glucose 87 mg/dL (74-106); Magnesium 2.2 mg/dL (1.6-2.6)
[2024-06-14] MEDS: FUROSEMIDE 40 MG/4 ML VIAL IV SCH (08:48)
[2024-06-15] VITALS (8 sets, daily range): BP systolic 95–135; BP diastolic 63–79; PULSE 65–94; RESP 17–18; TEMP 97.4–98.4; O2SAT 94–99
[2024-06-16 01:00] VITALS: BP 92/51; PULSE 83; RESP 16; TEMP 98.6; O2SAT 96
[2024-06-16 05:00] VITALS: BP 102/66; PULSE 81; RESP 16; TEMP 98.4; O2SAT 96
[2024-06-16 08:00] VITALS: PULSE 88; RESP 17; O2SAT 97
[2024-06-16 09:00] VITALS: BP 134/81; PULSE 88; RESP 17; TEMP 98.2; O2SAT 97
[2024-06-16 13:00] VITALS: BP 110/71; PULSE 87; RESP 16; TEMP 98.3; O2SAT 96
== END 2024-06-16 15:26 | disposition home or self-care (01) | DRG 691 ==
LOC: ER 19:57 → EDBD 19:57 → OVERFLOW 06-11 02:43 → WEST WING 06-11 14:28
PROVIDERS: ADMIT Nurse Practitioner; ATTEND Nurse Practitioner Acute Care
PROC: 0W9B3ZZ Drainage of Left Pleural Cavity, Percutaneous Approach (ICD-10-PCS; 2024-06-11)
PROC: 0W9B3ZX Drainage of Left Pleural Cavity, Percutaneous Approach, Diagnostic (ICD-10-PCS; principal; 2024-06-12)
PROC: 0W9B3ZZ Drainage of Left Pleural Cavity, Percutaneous Approach (ICD-10-PCS; 2024-06-16)
PROC: BB4BZZZ Ultrasonography of Pleura (ICD-10-PCS; 2024-06-16)
DX: C81.78 Other Hodgkin lymphoma, lymph nodes of multiple sites (principal); J96.01 Acute respiratory failure with hypoxia; I50.33 Acute on chronic diastolic (congestive) heart failure; E43 Unspecified severe protein-calorie malnutrition; R18.8 Other ascites; J91.0 Malignant pleural effusion; C82.28 Follicular lymphoma grade III, unspecified, lymph nodes of multiple sites; C85.18 Unspecified B-cell lymphoma, lymph nodes of multiple sites; E11.9 Type 2 diabetes mellitus without complications; E88.09 Other disorders of plasma-protein metabolism, not elsewhere classified; K74.60 Unspecified cirrhosis of liver; J44.9 Chronic obstructive pulmonary disease, unspecified; G40.909 Epilepsy, unspecified, not intractable, without status epilepticus; G89.4 Chronic pain syndrome; J98.11 Atelectasis; F17.210 Nicotine dependence, cigarettes, uncomplicated; Z59.00 Homelessness unspecified; Z88.0 Allergy status to penicillin; Z79.899 Other long term (current) drug therapy; Z68.21 Body mass index [BMI] 21.0-21.9, adult
CPT/HCPCS: 32555; 36415; 71045; 73502; 76604; 76705; 76942; 80048; 80053; 81001; 83605; 83735; 83880; 83986; 84484; 85025; 85610; 85730; 87070; 87205; 89051; 93005; 99291; G0378; P9047